=== PATIENT | female | born 1970 | race African-American/Black ===

== ENCOUNTER 2018-12-08 13:19 | Emergency (ER) | payer OTHER ==
[~2018-12-08] VITALS: Ht 170.2 cm; Wt 90.7 kg
[~2018-12-08 13:19] MED LIST: AUGMENTIN 875875 MG PO; B12INJ PO; BACTRIM DS TAB1 EACH PO; CITRACAL + D C1 EACH; CITRATE OF MAG296 ML PO; COLACE100 MG PO; DILAUDID 2 MG TA2 MG PO; IBUPROFEN 200200 M1 PO; IBUPROFEN 600600 M1 PO; IBUPROFEN200 M2 PO; NAPROSYN500 MG PO; PYRIDIUM200 MG PO; TRAMADOL 50 MG50 MG PO; ULTRAM 50MG TAB50 MG PO; UNICOMPLEX M TA1 TA1 PO; ZOFRAN ODT4 MG PO; ZOFRAN4 MG PO; ZPAK PO
[2018-12-08 13:30] VITALS: BP 117/70
[2018-12-08] MEDS ORDERED: SAXENDA3 MG/0.5 M SUBQ (13:34)
[2018-12-08] MEDS ORDERED: NAPROSYN500 MG PO (13:49)
== END 2018-12-08 14:21 | disposition home or self-care (01) ==
LOC: ER 13:19
DX: S50.01XA Contusion of right elbow, initial encounter (principal); Z90.710 Acquired absence of both cervix and uterus; Z98.890 Other specified postprocedural states; Z88.5 Allergy status to narcotic agent; Z88.8 Allergy status to other drugs, medicaments and biological substances; W22.8XXA Striking against or struck by other objects, initial encounter; Y92.89 Other specified places as the place of occurrence of the external cause; Y93.E5 Activity, floor mopping and cleaning; Y99.8 Other external cause status